=== PATIENT | male | born 1980 | race Caucasian/White ===

== ENCOUNTER 2020-02-02 13:27 | Emergency (ER) | payer BC ==
[2020-02-02] MEDS ORDERED: LABETALOL HCL INJ 20 MG/4 ML DISP.SYRIN IV ONE ×5 (13:41→14:33)
[2020-02-02] MEDS ORDERED: ONDANSETRON HCL INJ/PF 4 MG/2 ML SDV IV ONE (13:42)
[2020-02-02 13:49] LABS: ABSOLUTE BASOPHILS # (AUTO) 0.1 10^3/uL (0.0-0.2); ABSOLUTE EOSINOPHILS # (AUTO) 0.5 10^3/uL (0.0-0.6); ABSOLUTE LYMPHOCYTES (AUTO) 1.2 10^3/uL (0.5-4.7); ABSOLUTE MONOCYTES (AUTO) 0.3 10^3/uL (0.1-1.4); BASOPHILS % (AUTO) 0.5 % (0-2); EOSINOPHILS % (AUTO) 2.7 % (0-6); HEMATOCRIT 51.8 % (37.9-51.0); LYMPHOCYTES % (AUTO) 7.1 % (13-45); MEAN CORPUSCULAR HEMOGLOBIN 33.1 pg (27.0-33.4); MEAN CORPUSCULAR HGB CONC 34.8 g/dL (32.0-36.0); MEAN CORPUSCULAR VOLUME 95 fl (80-97); PLATELET COUNT 233 10^3/uL (150-450); RED BLOOD COUNT 5.44 10^6/uL (4.35-5.55); RED CELL DISTRIBUTION WIDTH 13.9 % (11.5-14.0); SEGMENTED NEUTROPHILS % (AUTO) 87.7 % (42-78); TOTAL CELLS COUNTED % (AUTO) 100 %; WHITE BLOOD COUNT 17.1 10^3/uL (4.0-10.5)
[2020-02-02 13:54] LABS: INTERNATIONAL RATION (INR) 1.01; PROTHROMBIN TIME 13.3 SEC (11.4-15.4)
[2020-02-02] MEDS ORDERED: TENECTEPLASE INJ 50 MG KIT IV ONE ×2 (14:00→14:42)
[2020-02-02] MEDS ORDERED: ASPIRIN 81 MG TABLET, CHEWABLE PO ONE (14:00)
[2020-02-02] MEDS ORDERED: CLOPIDOGREL BISULFATE 300 MG TABLET PO ONE (14:00)
[2020-02-02] MEDS ORDERED: CLOPIDOGREL BISULFATE 300 MG TABLET ONE (14:03)
--- NOTE | 2020-02-02 14:03 | ER Document Report ---
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 Patient states that the pain radiates down his left arm, up to his jaw on both sides, and across his chest. Patient is on carvedilol, amlodipine, and lisinopril for hypertension and he states he has not missed any of his medications. Patient states he is currently nauseated and has vomited 1 time. Patient has never had a cardiac catheterization in the past. Patient has a positive family history of coronary artery disease along with MIs history at around the age of 62. TRAVEL OUTSIDE OF THE [place] IN LAST 30 DAYS: No - Related Data Allergies/Adverse Reactions: Penicillins Allergy (Verified 12/09/14 19:12) Sulfa (Sulfonamide Antibiotics) Allergy (Verified 12/09/14 19:12) Past Medical History - General Information source: Patient - Social History Smoking Status: Current Every Day Smoker Cigarette use (# per day): Yes - 3/4 ppd Frequency of alcohol use: every other day Drug Abuse: None Lives with: Family Family History: Reviewed & Not Pertinent, Hypertension - patient states "both sides have hypertension" - Past Medical History Cardiac Medical History: Reports: Hx Congestive Heart Failure, Hx Hypertension Surgical Hx: Negative - Immunizations Hx Diphtheria, Pertussis, Tetanus Vaccination: Yes Review of Systems - Review of Systems Constitutional: See HPI, Diaphoresis EENT: No symptoms reported Cardiovascular: See HPI, Chest pain Respiratory: No symptoms reported Gastrointestinal: See HPI, Nausea, Vomiting Genitourinary: No symptoms reported Male Genitourinary: No symptoms reported Musculoskeletal: No symptoms reported Skin: No symptoms reported Hematologic/Lymphatic: No symptoms reported Neurological/Psychological: No symptoms reported -: Yes All other systems reviewed and negative Physical Exam - Vital signs Vitals: Resp BP Pulse Ox 21 H 210/157 H 100 02/02/20 13:38 02/02/20 13:38 02/02/20 13:38 - Notes Notes: Physical Exam: General: Alert, appears uncomfortable, and apprehensive. HEENT: Normocephalic. Atraumatic. PERRL. Extraocular movements intact. Oropharynx clear. Neck: Supple. Non-tender. Respiratory: No respiratory distress. Clear and equal breath sounds bilaterally. Cardiovascular: Tachycardic. Regular rhythm. Abdominal: Normal Inspection. Non-tender. No distension. Normal Bowel Sounds. Back: No gross abnormalities. Extremities: Moves all four extremities. Upper extremities: Normal inspection. Normal ROM. Lower extremities: Normal inspection. No edema. Normal ROM. Neurological: Normal cognition. AAOx4. Normal speech. Psychological: Normal affect. Normal Mood. Skin: After 10 mg of labetalol, the patient was sat up for a chest x-ray and he began to have profuse diaphoresis. Course - Re-evaluation Re-evalutation: 02/02/20 14:24 The patient presented about 3 hours after onset of left anterior chest pressure discomfort radiating into both jaws and down both arms. His blood pressure was 210/157 with a heart rate of 115. He reported he had some nauseousness and had vomited once. During the evaluation in the room, he was given 1 sublingual nitroglycerin at 1:43 PM. He was then administered 10 mg of labetalol IV, followed by another 10 mg of labetalol IV. It brought his rate down to 99, and his systolic blood pressure down to 179. He reports that the chest pressure discomfort did improve but did not go away completely. Repeat EKG was similar to the initial one showing anterior ST elevation myocardial infarction. I did speak with Dr. Benitez to review the first EKG to see if he felt this was actually a myocardial infarction. He called back shortly after a repeat EKG was done. He was first called at 1:48 PM. We spoke again at 1:59 PM and he was able to review the second 12-lead. At this point he felt certain this was a STEMI and should get thrombolytics. Patient was given TNKase, Plavix 300 mg, aspirin 324 mg, 1 inch of nitroglycerin paste. Arrangements were made to transport the patient helicopter. 02/02/20 14:47 At this time the helicopter is outside on the landing pad. Patient is smiling and not diaphoretic. He states that he feels much better than he did earlier although the pressure discomfort is still there. Repeat EKG continues to show STEMI anterior TN, but the amount of elevation seems to have come down some. 02/02/20 14:59 At this time the transport crew is with the patient preparing to load him on the stretcher. He states his pain was a 5 when he first got here, it is a 3 now. He is smiling and appears quite comfortable. - Vital Signs Vital signs: Temp Pulse Resp BP Pulse Ox 97.8 F 28 H 158/125 H 97 02/02/20 14:50 02/02/20 14:42 02/02/20 14:42 02/02/20 14:42 - Laboratory Result Diagrams: 02/02/20 13:39 02/02/20 13:39 Laboratory results interpreted by me: 02/02/20 02/02/20 02/02/20 13:39 13:39 13:39 WBC 17.1 H Hgb 18.0 H Hct 51.8 H Lymph % (Auto) 7.1 L [place] % (Auto) 2.0 L Absolute Neuts (auto) 15.0 H Seg Neutrophils % 87.7 H Potassium 5.5 H Creatinine 1.90 H Est GFR ( Amer) 48 L Est GFR (MDRD) Non-Af 40 L Glucose 149 H Creatine Kinase 221 H CK-MB (CK-2) 6.38 H Total Protein 8.9 H - Diagnostic Test Radiology reviewed: Image reviewed - Chest x-ray shows some cardiac enlargement without failure. - EKG Interpretation by Me EKG shows normal: Sinus rhythm, [place], Intervals, ST-T Waves. abnormal: QRS Complexes - STEMI anteriuor Rate: Tachycardia - 115 [place]/QRS: IVCD Voltage: Consistant with LVH P Waves: LAE - Consults Dr. Garces Time consulted: 14:05 Consulted provider: other - Will accept at [facility] [place] Critical Care Note - Critical Care Note Total time excluding time spent on procedures (mins): 55 Discharge - Discharge Clinical Impression: Uncontrolled hypertension ST elevation myocardial infarction (STEMI) Qualifiers: Involved coronary artery: unspecified coronary artery Qualified Code(s): I21.3 - ST elevation (STEMI) myocardial infarction of unspecified site Condition: Stable Disposition: [facility] Referrals: YOLIS LUCERO MD [ASSOCIATE] - Follow up as needed I personally performed the services described in the documentation, reviewed and edited the documentation which was dictated to the scribe in my presence, and it accurately records my words and actions.
[2020-02-02 14:04] LABS: ALKALINE PHOSPHATASE 92 U/L (38-126); ANION GAP 9 (5-19); ASPARTATE AMINO TRANSFERASE 32 U/L (17-59); BILIRUBIN,TOTAL 1.3 mg/dL (0.2-1.3); BLOOD UREA NITROGEN 20 mg/dL (7-20); CALCIUM 10.1 mg/dL (8.4-10.2); CARBON DIOXIDE 27 mmol/L (22-30); CHLORIDE 104 mmol/L (98-107); CREATINE KINASE 221 U/L (55-170); GLUCOSE 149 mg/dL (75-110); POTASSIUM 5.5 mmol/L (3.6-5.0); TOTAL PROTEIN 8.9 g/dL (6.3-8.2)
[2020-02-02] MEDS ORDERED: NITROGLYCERIN 2% OINTMENT 1 GM PACKET TP ONE (14:12)
[2020-02-02] MEDS ORDERED: NITROGLYCERIN 2% OINTMENT 1 GM PACKET ONE (14:13)
[2020-02-02 14:15] LABS: CREATINE KINASE MB 6.38 ng/mL (<4.55)
[2020-02-02 14:19] LABS: TROPONIN I 0.183 ng/mL
[2020-02-02] MEDS ORDERED: ASPIRIN 81 MG TABLET, CHEWABLE ONE (14:42)
--- NOTE | 2020-02-02 15:03 | RADIOLOGY REPORT (SQ) ---
EXAM DESCRIPTION: CHEST SINGLE VIEW IMAGES COMPLETED DATE/TIME: 02/02/2020 2:47 pm REASON FOR STUDY: chest pain COMPARISON: None. EXAM PARAMETERS: NUMBER OF VIEWS: One view. TECHNIQUE: Single frontal radiographic view of the chest acquired. RADIATION DOSE: NA LIMITATIONS: None. FINDINGS: LUNGS AND PLEURA: Mild pulmonary vascular prominence is present. Question Kermit lines at both lung bases from fluid overload or interstitial edema No pleural effusion. No pneumothorax MEDIASTINUM AND HILAR STRUCTURES: No masses. Contour normal. HEART AND VASCULAR STRUCTURES: Mild cardiomegaly, stable BONES: No acute findings. HARDWARE: None in the chest. OTHER: No other significant finding. IMPRESSION: Pulmonary vascular congestion with mild interstitial edema TECHNICAL DOCUMENTATION: JOB ID: [id number] [employer]- All Rights Reserved Reading location - IP/workstation name: [email or web address]
[2020-02-02 15:07] VITALS: BP 167/132
--- NOTE | 2020-02-02 15:51 | EKG REPORT ---
SEVERITY:- ABNORMAL ECG - SINUS TACHYCARDIA PROBABLE LEFT ATRIAL ABNORMALITY LVH WITH IVCD AND SECONDARY REPOL ABNRM ACUTE CONCAVE ST ELEVATION ANTERIOR WALL COMPARED TO 12/09/14 EKG, NOT TYPICAL OF AMI PATTERN, CLINICAL CORRELATION NEEDED. : Confirmed by: Jethro Dennison MD 02-Feb-2020 15:51:07
--- NOTE | 2020-02-02 15:53 | EKG REPORT ---
SEVERITY:- ABNORMAL ECG - SINUS RHYTHM PROBABLE LEFT ATRIAL ABNORMALITY LVH WITH IVCD AND SECONDARY REPOL ABNRM CONSIDER ACUTE ANTERIOR WALL [place] : Confirmed by: Jethro Dnenison MD 02-Feb-2020 15:53:11
--- NOTE | 2020-02-02 15:53 | EKG REPORT ---
SEVERITY:- ABNORMAL ECG - SINUS RHYTHM PROBABLE LEFT ATRIAL ABNORMALITY LVH WITH IVCD AND SECONDARY REPOL ABNRM ACUTE CONCAVE ST ELEVATION AANTERIOR LEADS, NEED TO RULE OUT ACUTE DC. : Confirmed by: Jethro Dennison MD 02-Feb-2020 15:52:36
--- NOTE | 2020-02-04 07:58 | EKG REPORT ---
SEVERITY:- ABNORMAL ECG - SINUS RHYTHM PROBABLE LEFT ATRIAL ABNORMALITY LVH WITH IVCD, LAD AND SECONDARY REPOL ABNRM ACUTE ANTERIOR ST ELEVATION, CONSIDER ACUTE CT ANTERIOR WALL : Confirmed on behalf of: Jethro Dennison MD 04-Feb-2020 07:57:44
== END 2020-02-02 15:04 | disposition short-term general hospital (02) ==
LOC: ER 13:27
DX: R07.9 Chest pain, unspecified (principal); R11.2 Nausea with vomiting, unspecified; R00.0 Tachycardia, unspecified; F17.210 Nicotine dependence, cigarettes, uncomplicated; I11.0 Hypertensive heart disease with heart failure; I50.9 Heart failure, unspecified; Z88.0 Allergy status to penicillin; Z88.2 Allergy status to sulfonamides
CPT/HCPCS: 93005; 96376; 99291; 96374; 96375; 36415; 82553; 82550; 85025; 85610; 85730; 80053; 84484; 71045; 93010; J3101; J3490 ×2; J2405

== ENCOUNTER → 2020-05-21 | Outpatient (CLI) | payer BC | LOC: OD 12:07 | PROVIDERS: ATTEND Physician Assistant Medical | DX: E87.5 Hyperkalemia (principal) | CPT/HCPCS: 36415; 84132 ==